=== PATIENT | female | born 1960 | race Caucasian/White ===

== ENCOUNTER → 2016-12-13 | Outpatient (CLI) | payer OTHER, BC ==
[~2016-12-13] MED LIST: BUTA1TAB9 PO; CEPH-137 PO; CYCL-83 PO; DULO30CA23 PO; FEXO180T56 PO; FLUT16SP12 NS; GABA-215 PO; IBUP-1264 PO; METH750T89 PO; OMEP-29 PO; OXYC-48 PO; [UNRECOGNIZED DRUG - CODE] PO; [UNRECOGNIZED DRUG - CODE] PO; [UNRECOGNIZED DRUG - CODE] PO
--- NOTE | 2016-12-14 08:46 | DI ---
Indication: ITS.REASON: M25.521 PAIN IN RIGHT ELBOW PROCEDURE: ELBOW RIGHT 3 VIEW: Encounter: Initial Comparison: None Findings: Mildly impacted fracture of the radial head. No additional acute fracture or dislocation seen. Impression: Closed posttraumatic radial head fracture. .
== END ==
LOC: IMA 18:08
PROVIDERS: ATTEND Family Medicine
DX: S52.121A Displaced fracture of head of right radius, initial encounter for closed fracture (principal); W18.39XA Other fall on same level, initial encounter; Y93.89 Activity, other specified; Y92.481 Parking lot as the place of occurrence of the external cause; Y99.0 Civilian activity done for income or pay; M25.521 Pain in right elbow